=== PATIENT | female | born 1990 | race Caucasian/White ===

== ENCOUNTER 2016-12-18 18:42 | Emergency (ER) | payer BC ==
[~2016-12-18] VITALS: Ht 157.5 cm; Wt 61.2 kg
--- NOTE | 2016-12-18 20:15 | NUR ---
Patient discharged to home in stable conditon. Written and verbal after care instructions given. Patient verbalizes understanding of instructions.
== END 2016-12-18 20:16 | disposition home or self-care (01) ==
LOC: ER 18:42
DX: M79.605 Pain in left leg (principal); M79.652 Pain in left thigh
CPT/HCPCS: A4663